=== PATIENT | female | born 1955 | race Caucasian/White ===

== ENCOUNTER 2019-02-03 19:18 | Inpatient (IN) | payer OTHER ==
[2019-02-03] MEDS: INSULIN ASPART [NOVOLOG] 3 ML PEN SC (21:00)
[2019-02-03] MEDS ORDERED: GLUCOSE GEL 15 GRAM TUBE BUCCAL (21:30)
[2019-02-03] MEDS ORDERED: DEXTROSE 50% 50 ML SYRINGE IV ×2 (21:30)
[2019-02-03] MEDS ORDERED: GLUCOSE GEL 15 GRAM TUBE PO ×2 (21:30)
[2019-02-03] MEDS ORDERED: GLUCAGON 1 MG INJ IM (21:30)
[2019-02-03] MEDS ORDERED: NITROGLYCERIN (SL) 0.4 MG TAB SL (22:00)
[2019-02-03] MEDS ORDERED: ACETAMINOPHEN 500 MG TAB PO (22:00)
[2019-02-03] MEDS: [UNRECOGNIZED DRUG - OTHER] XX (22:00)
[2019-02-03] MEDS: ATORVASTATIN 80 MG TAB PO (22:02)
[2019-02-03] MEDS: ACETAMINOPHEN 500 MG TAB PO (23:51)
[2019-02-04] MEDS: INSULIN ASPART [NOVOLOG] 3 ML PEN SC ×2 (07:04→11:42)
[2019-02-04] MEDS: LISINOPRIL 20 MG TAB PO (08:18)
[2019-02-04] MEDS ORDERED: POLYETHYLENE GLYCOL 17 GM PACKET PO ×2 (09:00)
[2019-02-04] MEDS: ASPIRIN 81 MG TAB PO (13:18)
== END 2019-02-04 16:15 | disposition short-term general hospital (02) | DRG 282 ==
LOC: TEL 19:18
PROVIDERS: Internal Medicine
DX: I21.4 Non-ST elevation (NSTEMI) myocardial infarction (principal); E11.9 Type 2 diabetes mellitus without complications; I25.10 Atherosclerotic heart disease of native coronary artery without angina pectoris; I35.0 Nonrheumatic aortic (valve) stenosis; I10 Essential (primary) hypertension; E78.5 Hyperlipidemia, unspecified; Z79.82 Long term (current) use of aspirin; Z79.4 Long term (current) use of insulin
CPT/HCPCS: 82962; 93306; 93880